=== PATIENT | male | born 1960 | race Caucasian/White ===

== ENCOUNTER 2022-05-23 11:53 | Outpatient (CLI) | payer OTHER, SELFPAY ==
[2022-05-23 12:08] VITALS: BP 158/68; PULSE 75; RESP 75; O2SAT 100
[2022-05-23] MEDS: TETRACAINE 0.5% OPHTH 1 DROP EYE-RIGHT ×3 (12:09→12:34)
[2022-05-23] MEDS: BRIMONIDINE TARTRATE 0.2% OPHTH 1 DROP EYE-RIGHT ×2 (12:10→12:45)
--- NOTE | 2022-05-23 13:40 | W.PM.OPTPROC ---
Procedure Note Date of procedure: 05/23/22 Will [facility] bill your pro fee for this procedure?: Yes Procedure Description: SURGEON: Marlee Pederson MD PREOPERATIVE DIAGNOSIS: Posterior capsular opacity, right eye POSTOPERATIVE DIAGNOSIS: Posterior capsular opacity, right eye PROCEDURE: YAG laser capsulotomy, right eye ANESTHESIA: Topical. ESTIMATED BLOOD LOSS: None PATHOLOGY SPECIMEN: None COMPLICATIONS: None INDICATIONS: See consult note for details. The risks, benefits and alternatives of the procedure were explained to the patient, who elected to proceed and signed informed consent to do so. PROCEDURE: The patient was brought to the pre-holding area where the right eye was identified as the operative eye. I placed my initials above this eye. The patient received 2 sets of 1 drop of 0.5% tetracaine and 1 drop of 1% tropicamide. They also received 1 drop of 0.2% brimonidine. They received 1 drop of 0.5% tetracaine immediately prior to bringing them back for the procedure. The patient was then brought to the procedure room where the right eye was again identified as the operative eye. A YAG Christiano capsulotomy lens was placed on the eye. The laser was administered using a total number of 15 shots with an energy of 2.4 mJ per shot for a total energy of 36 mJ. The patient tolerated the procedure well. DISPOSITION: The patient was taken back to the pre-holding area and given 1 drop of 0.2% brimonidine in the right eye. They were discharged to home in stable condition. The patient was instructed to call me or go to the emergency department with any sudden change, including dramatic loss of vision, severe pain in the eye or eyebrow region, nausea, or vomiting. The patient was instructed to use the 0.2% brimonidine 1 drop 2 times a day in the right eye for 1 week. The patient will follow up in the clinic in 1-2 weeks. Surgeon: Marlee Pederson MD
== END 2022-05-23 12:46 | disposition home or self-care (01) ==
LOC: EYE PRC 11:55
PROVIDERS: PCP Surgery; Visit Provider Ophthalmology
DX: H26.9 Unspecified cataract (principal)
CPT/HCPCS: 66821; A9270

== ENCOUNTER 2022-06-06 08:43 | Day surgery (SDC) | payer OTHER, SELFPAY ==
--- NOTE | 2022-06-06 09:13 | SUR.PREOP ---
Home COVID test negative, confirmed by contract writer.
--- NOTE | 2022-06-06 09:13 | SUR.PREOP ---
The eye drops brought by the patient (Ketorolac and Prednisolone) are examined and I have determined they are labeled by the patient's pharmacy for this patient as prescribed by the surgeon. The bottles are intact, recently obtained and appear to be correct.
[2022-06-06] MEDS: TETRACAINE 0.5% OPHTH 1 DROP EYE-LEFT ×2 (09:15→09:23)
[2022-06-06 09:16] VITALS: BMI 27.5
[2022-06-06] MEDS: KETOROLAC OPHTH 0.5% 1 DROP EYE-LEFT ×2 (09:21→09:31)
[2022-06-06 09:25] VITALS: BP 137/72; PULSE 75; RESP 16; TEMP 36.4; O2SAT 99
[2022-06-06] MEDS: SODIUM CHLORIDE 0.9 % (FLUSH) 10 ML SYRINGE IVF (09:35)
[2022-06-06] MEDS: TETRACAINE 0.5% OPHTH 2 DROP EYE-LEFT (10:27)
[2022-06-06] MEDS: BALANCED SALT IRRIG SOLN 15 ML EYE-LEFT (10:31)
--- NOTE | 2022-06-06 10:31 | W.ANESCHARGE ---
Anesthesia Charges Start Date/Time Anesthesia Start Date: 06/06/22 Anesthesia Start Time: 10:25 Stop Date/Time Anesthesia Stop Date: 06/06/22 Anesthesia Stop Time: 10:56 Summary Emergency: No
--- NOTE | 2022-06-06 10:59 | P.OPTPRC_ITS ---
Procedure Note Date of procedure: 06/06/22 Will [facility] bill your pro fee for this procedure?: Yes Procedure Description: SURGEON: Marlee Pederson MD PREOPERATIVE DIAGNOSIS: Nuclear sclerotic cataract, left eye. POSTOPERATIVE DIAGNOSIS: Nuclear sclerotic cataract, left eye. NAME OF OPERATION: Phacoemulsification of cataract with posterior chamber intraocular lens implantation in the left eye. ANESTHESIA: Topical. ESTIMATED BLOOD LOSS: Less than 2 cc. COMPLICATIONS: None. PATHOLOGY SPECIMEN: None. INDICATIONS: See consult note for details. The risks, benefits and alternatives of the procedure were explained to the patient, who elected to proceed and sign ed informed consent to do so. PROCEDURE: The patient was brought to the pre-holding area where the left eye was identified as the operative eye. I placed my initials above this eye. The patient received eye drops consisting of 0.5% tetracaine, 1% tropicamide, 10% phenylephrine, and 0.5% ketorolac. The patient was then brought to the operating room where the left eye was again identified as the operative eye. The eye was prepped with Betadine and draped in the usual sterile ophthalmic fashion. A #15 super-sharp blade was used to create a paracentesis site. 1% non-preserved intracameral lidocaine was injected into the anterior chamber. Endocoat was injected into the anterior chamber. A 2.4 mm keratome was used to create a three-plane self-sealing incision 1 mm anterior to the temporal limbus. A cystotome was used to create an anterior capsular leaflet. The Utrata forceps were used to extend this to form a continuous curvilinear capsulorrhexis. Hydrodissection was performed. The cataract was removed with phacoemulsification using the ereolm-dbf-[id number] technique. The irrigation and aspiration tip was used to remove the remaining cortex. Healon was injected into the capsular bag. An MIGNON [id number] intraocular lens of 21.5 diopters was injected into the capsular bag. The irrigation and aspiration tip was used to remove the remaining viscoelastic. Balanced salt solution on a cannula was used to hydrate the wound, and the wound was found to be watertight. The pupil was noted to be round. DISPOSITION: The patient was taken to the recovery room and discharged to home in stable condition. The patient was instructed to call me or go to the emergency department with any sudden change, including dramatic loss of vision, severe pain in the eye or eyebrow region, nausea, or vomiting. The patient will follow up in the clinic tomorrow morning. Surgeon: Marlee Pederson MD
[2022-06-06 11:11] VITALS: BP 131/82; PULSE 70; RESP 16; TEMP 36.6; O2SAT 97
--- NOTE | 2022-06-06 11:29 | W.ANESCHARGE ---
Anesthesia Charges Start Date/Time Anesthesia Start Date: 06/06/22 Anesthesia Start Time: 10:25 Stop Date/Time Anesthesia Stop Date: 06/06/22 Anesthesia Stop Time: 10:56 Summary Emergency: No
== END 2022-06-06 11:29 | disposition home or self-care (01) ==
PROVIDERS: PCP Surgery; Visit Provider Ophthalmology
PROC: (CPT 66984; principal; 2022-06-06 09:00)
DX: H25.12 Age-related nuclear cataract, left eye (principal)
CPT/HCPCS: 66984; 00142; A9270; J2250; J3010; V2632

== ENCOUNTER 2023-11-07 13:11 | Outpatient (CLI) | payer BC, SELFPAY | END 2023-11-07 13:12 | disposition home or self-care (01) | LOC: WOUND 13:20 | PROVIDERS: PCP Surgery; Visit Provider Nurse Practitioner Family | DX: E11.621 Type 2 diabetes mellitus with foot ulcer (principal); L97.412 Non-pressure chronic ulcer of right heel and midfoot with fat layer exposed; Z79.4 Long term (current) use of insulin; Z79.84 Long term (current) use of oral hypoglycemic drugs; Z92.25 Personal history of immunosuppression therapy | CPT/HCPCS: 11042; G0463 ==

== ENCOUNTER 2023-11-14 13:22 | Outpatient (CLI) | payer BC, SELFPAY | END 2023-11-14 13:23 | disposition home or self-care (01) | LOC: WOUND 13:22 | PROVIDERS: PCP Surgery; Visit Provider Nurse Practitioner Family | DX: E11.621 Type 2 diabetes mellitus with foot ulcer (principal); L97.412 Non-pressure chronic ulcer of right heel and midfoot with fat layer exposed; Z79.4 Long term (current) use of insulin; Z79.84 Long term (current) use of oral hypoglycemic drugs; Z92.25 Personal history of immunosuppression therapy | CPT/HCPCS: 11042 ==

== ENCOUNTER 2023-11-21 13:04 | Outpatient (CLI) | payer BC, SELFPAY | END 2023-11-21 13:05 | disposition home or self-care (01) | LOC: WOUND 13:05 | PROVIDERS: PCP Surgery; Visit Provider Nurse Practitioner Family | DX: E11.621 Type 2 diabetes mellitus with foot ulcer (principal); L97.412 Non-pressure chronic ulcer of right heel and midfoot with fat layer exposed; Z92.25 Personal history of immunosuppression therapy | CPT/HCPCS: 11042 ==

== ENCOUNTER 2023-11-28 12:59 | Outpatient (CLI) | payer BC, SELFPAY | END 2023-11-28 13:00 | disposition home or self-care (01) | LOC: WOUND 12:59 | PROVIDERS: PCP Surgery; Visit Provider Nurse Practitioner Family | DX: E11.621 Type 2 diabetes mellitus with foot ulcer (principal); L97.412 Non-pressure chronic ulcer of right heel and midfoot with fat layer exposed; Z79.4 Long term (current) use of insulin; Z79.84 Long term (current) use of oral hypoglycemic drugs; Z92.25 Personal history of immunosuppression therapy | CPT/HCPCS: 11042 ==

== ENCOUNTER 2023-12-05 12:44 | Outpatient (CLI) | payer BC, SELFPAY | END 2023-12-05 12:45 | disposition home or self-care (01) | LOC: WOUND 12:44 | PROVIDERS: PCP Surgery; Visit Provider Nurse Practitioner Family | DX: E11.621 Type 2 diabetes mellitus with foot ulcer (principal); L97.412 Non-pressure chronic ulcer of right heel and midfoot with fat layer exposed; Z79.4 Long term (current) use of insulin; Z79.84 Long term (current) use of oral hypoglycemic drugs; Z92.25 Personal history of immunosuppression therapy | CPT/HCPCS: 11042 ==

== ENCOUNTER 2023-12-06 14:32 | Outpatient (CLI) | payer BC, SELFPAY ==
--- NOTE | 2023-12-06 15:00 | CRLHL7_ITS ---
For Patients: As a result of the Century Cures Act, medical imaging exams and procedure reports are released immediately into your electronic medical record. You may view this report before your referring provider. If you have questions, please contact your health care provider. Indication: Vasculitis Technique: High-resolution CT chest performed in the supine position with inspiration and expiration. Please note that all CT scans at this facility use dose modulation, iterative reconstruction, and/or weight-based dosing when appropriate to reduce radiation dose to as low as reasonably achievable. Comparison: No comparisons available. Findings: Left adrenal nodule is present measuring 2.0 cm with a mean Hounsfield units of 32 making this indeterminate. Right adrenal gland is normal. Gallbladder is contracted. Calcifications of the coronary arteries. Several calcified lymph nodes are present representing sequela of granulomatous disease. A few subcentimeter noncalcified lymph nodes are present throughout the mediastinum. No enlarged lymph nodes. No fracture is present. Mild multilevel degenerative changes noted. Ground-glass densities are present in both upper lobes, right greater than left. Subpleural nodular densities within the posterior left lower lobe noted. Noncalcified nodule in the right middle lobe measures 4.5 millimeters. Additional noncalcified nodule right middle lobe measures 5.2 millimeters. Tiny nodular density in the right lower lobe measures 3 millimeters. No pulmonary edema or pleural effusion. No pneumothorax. Mild air trapping is present within the dependent lower lobes. Impression: Mild dependent air trapping bilaterally. No thickening of the interlobular septa or honeycombing to suggest pulmonary fibrosis. A few scattered nodular densities bilaterally measuring up to 5.2 millimeters. Follow-up in noncontrast CT 1 year could be considered. Bilateral upper lobe ground-glass densities, right greater than left, suggesting infiltrates or bilateral upper lung zone disease, would consider sarcoidosis, hypersensitivity pneumonitis, or histiocytosis. Please note that all CT scans at this facility use dose modulation, iterative reconstruction, and/or weight-based dosing when appropriate to reduce radiation dose to as low as reasonably achievable. Dictated by Reed Ramos MD @ 12/10/2023 9:33:29 AM (Electronically Signed)
== END 2023-12-06 14:33 | disposition home or self-care (01) ==
LOC: CT 14:33
PROVIDERS: PCP Surgery; Visit Provider Internal Medicine Pulmonary Disease
DX: I77.6 Arteritis, unspecified (principal); R91.8 Other nonspecific abnormal finding of lung field
CPT/HCPCS: 71250

== ENCOUNTER 2023-12-13 14:27 | Outpatient (CLI) | payer BC, SELFPAY | END 2023-12-13 14:28 | disposition home or self-care (01) | LOC: WOUND 14:27 | PROVIDERS: PCP Surgery; Visit Provider Physician Assistant | DX: E11.621 Type 2 diabetes mellitus with foot ulcer (principal); L97.412 Non-pressure chronic ulcer of right heel and midfoot with fat layer exposed; Z92.25 Personal history of immunosuppression therapy; Z79.4 Long term (current) use of insulin; Z79.84 Long term (current) use of oral hypoglycemic drugs | CPT/HCPCS: 15275; Q4101 ==

== ENCOUNTER 2023-12-20 15:04 | Outpatient (CLI) | payer BC, SELFPAY | END 2023-12-20 15:05 | disposition home or self-care (01) | LOC: WOUND 15:04 | PROVIDERS: PCP Surgery; Visit Provider Nurse Practitioner Family | DX: E11.621 Type 2 diabetes mellitus with foot ulcer (principal); L97.412 Non-pressure chronic ulcer of right heel and midfoot with fat layer exposed; Z79.4 Long term (current) use of insulin; Z79.84 Long term (current) use of oral hypoglycemic drugs; Z92.25 Personal history of immunosuppression therapy | CPT/HCPCS: G0463 ==

== ENCOUNTER 2023-12-27 15:04 | Outpatient (CLI) | payer BC, SELFPAY | END 2023-12-27 15:05 | disposition home or self-care (01) | LOC: WOUND 15:04 | PROVIDERS: PCP Surgery; Visit Provider Nurse Practitioner Family | DX: E11.621 Type 2 diabetes mellitus with foot ulcer (principal); L97.412 Non-pressure chronic ulcer of right heel and midfoot with fat layer exposed; Z79.4 Long term (current) use of insulin; Z79.84 Long term (current) use of oral hypoglycemic drugs | CPT/HCPCS: 11042 ==

== ENCOUNTER 2024-01-13 07:59 | Outpatient (CLI) | payer BC, SELFPAY | END 2024-01-13 08:00 | disposition home or self-care (01) | LOC: AMB 01-14 22:03 | PROVIDERS: PCP Surgery; Visit Provider Family Medicine | DX: R07.89 Other chest pain (principal); R55 Syncope and collapse; R42 Dizziness and giddiness | CPT/HCPCS: A0425; A0427 ==

== ENCOUNTER 2024-01-13 08:28 | Inpatient (IN) | payer BC, SELFPAY ==
[2024-01-13] VITALS (29 sets, daily range): BP systolic 124–152; BP diastolic 69–91; PULSE 86–105; RESP 16–20; TEMP 35.5–36.3; O2SAT 94–100
--- NOTE | 2024-01-13 08:39 | ED_ITS ---
HPI - General Adult General Date Seen: 01/13/24 Chief complaint: Dizziness/Vertigo Stated complaint: Dizziness Time Seen by Provider: 01/13/24 08:39 History of Present Illness HPI narrative: 63-year-old gentleman with a history of type 2 diabetes (on insulin), rheumatoid arthritis (recent infusion of Rituxan a couple of months ago done in [place]), hypertension, sleep apnea, and medical record indicates he has a history of ANCA associated vasculitis. He is brought to the ER today by EMS from his job. He works at the [employer]. Patient is seen upon arrival by EMS. History from paramedics is that he was at the [employer] this morning. He was walking and he got very weak and dizzy and felt like he was going to faint so he sat down. He did not actually lose consciousness. No chest pain or shortness of breath. Oxygen a pulse rate normal. He is also complaining of left leg swelling and pain. EKG was normal. Blood sugar was 280. History from the patient is as follows. He notes that he forgot to tell paramedics that he tested positive for COVID 8 days ago. He has been having symptoms of if COVID including a mild cough but generally doing pretty well. He has not been particularly run down her fatigued. He has not really been needing to rest in bed. He was well enough today that he was able to go to work. He has been having swelling in his left leg with swelling and discomfort from the hip all the way down to the foot that is been like that since last Saturday, 3 days ago. No known injury. He did have a recent plane flight to [place] about 2 weeks ago. Probably contracted COVID while traveling. No fevers. No cough. No vomiting or diarrhea. He says been eating and drinking plenty of fluids. Because his left leg was swollen uncomfortable he almost decided to come to the ER instead of go to work this morning. Ultimately he decided just to go to work. Related Data Home Medications ?Medication ?Instructions ?Recorded ?Confirmed insulin glargine-yfgn 100 unit/mL 11 unit subcut BID 06/05/22 01/13/24 (3 mL) subcutaneous pen (Semglee (insulin glargine-yfgn) Pen) metformin 1,000 mg tablet 1,000 mg PO BIDWM 06/05/22 01/13/24 losartan 25 mg tablet 25 mg PO DAILY 05/30/23 01/13/24 acetaminophen 500 mg tablet 1,000 mg PO QID PRN 01/13/24 01/13/24 empagliflozin 25 mg tablet 25 mg PO DAILY 01/13/24 01/13/24 (Jardiance) ibuprofen 200 mg tablet (Advil) 200 mg PO Q6H PRN 01/13/24 01/13/24 Allergies Allergy/AdvReac Type Severity Reaction Status Date / Time No Known Drug Allergies Allergy Verified 01/13/24 10:32 [facility] Medical History (Updated 01/13/24 @ 13:19 by Jaky John MD) ANCA-associated vasculitis ?I77.82 - Antineutrophilic cytoplasmic antibody [ANCA] vasculitis (ICD-10) Hypertension ?I10 - Essential (primary) hypertension (ICD-10) Type 2 diabetes mellitus ?E11.9 - Type 2 diabetes mellitus without complications (ICD-10) TACOS (obstructive sleep apnea) ?G47.33 - Obstructive sleep apnea (adult) (pediatric) (ICD-10) Surgical History (Updated 01/13/24 @ 12:22 by Jaky John MD) History of colonoscopy ?Z98.890 - Other specified postprocedural states (ICD-10) History of tonsillectomy ?Z90.89 - Acquired absence of other organs (ICD-10) History of hernia repair ?Z98.890 - Other specified postprocedural states (ICD-10) ?Z87.19 - Personal history of other diseases of the digestive system (ICD-10) Social History Smoking Status: Never smoker Do you use any of these nicotine containing products: None Second hand tobacco smoke exposure: No How often do you have a drink containing alcohol: never AUDIT-C Alcohol total score: 0 Non-prescribed substance use: denies use Caffeine: Yes Exam Narrative: Exam Narrative: Constitutional: Appears well-developed and well-nourished. Alert. Conversant. Mildly anxious but polite. Non toxic. HENT: Head: Atraumatic. Nose: Nose normal. Mouth/Throat: Oral mucosa is clear and moist. no trismus. Pharynx normal. Eyes: Conjunctivae normal. EOM normal. Pupils equal, round, and reactive to light. No scleral icterus. Neck: Normal range of motion. Neck supple. No tracheal deviation present. No JVD Cardiovascular: Normal rate, regular rhythm. No gallop. No friction rub. No murmur heard. Symmetric radial artery pulses Pulmonary/Chest: Effort normal. No stridor. No respiratory distress. No wheezes. No rales. No rhonchi . No tenderness. Abdominal: Soft. Bowel sounds normal. No distension. No mass. No tenderness. No rebound. No guarding. Musculoskeletal: No L-spine tenderness. Pelvis stable. RUE: Normal range of motion. No tenderness. No deformity LUE: Normal range of motion. No tenderness. No deformity RLE: Normal range of motion. No edema. No tenderness. No deformity LLE: Normal range of motion in his hip, knee, ankle. No bony deformity. He has fairly diffuse erythema and swelling of the entire left leg from the hip all way down to the foot. Normal cap refill. Strong DP and PT pulses. No signs of ischemia. Concerning for possible DVT Lymph: No ascending lymphangitis Neurological: Alert and oriented to person, place, and time. Normal strength. CN II-VII intact. No sensory deficit. GCS eye subscore is 4. GCS verbal subscore is 5. GCS motor subscore is 6. Normal coordination Skin: Skin is warm and dry. No rash noted. No pallor. Normal capillary refill. Psychiatric: Normal mood. Polite but mildly anxious Const: Vital Signs, click to edit/add: Vital Signs - 24 hr 01/13/24 08:30 01/13/24 09:02 01/13/24 09:03 Temperature 96 F L Pulse Rate 100 Pulse Rate [Right Pulse Oximeter] 105 H Respiratory Rate 20 Blood Pressure 136/71 Blood Pressure [Le ft Upper Arm] 145/77 H Pulse Oximetry 96 95 97 Oxygen Delivery Me thod Room Air 01/13/24 09:04 01/13/24 09:15 01/13/24 09:30 Temperature Pulse Rate 98 99 94 Pulse Rate [Right Pulse Oximeter] Respiratory Rate Blood Pressure Blood Pressure [Le ft Upper Arm] Pulse Oximetry 95 94 95 Oxygen Delivery Me thod 01/13/24 09:32 01/13/24 09:45 01/13/24 10:00 Temperature Pulse Rate 94 93 95 Pulse Rate [Right Pulse Oximeter] Respiratory Rate Blood Pressure 131/69 Blood Pressure [Le ft Upper Arm] Pulse Oximetry 95 97 97 Oxygen Delivery Me thod 01/13/24 10:01 01/13/24 10:58 01/13/24 11:00 Temperature Pulse Rate 93 94 100 Pulse Rate [Right Pulse Oximeter] Respiratory Rate Blood Pressure 143/78 H Blood Pressure [Le ft Upper Arm] Pulse Oximetry 96 98 98 Oxygen Delivery Me thod 01/13/24 11:01 01/13/24 11:15 01/13/24 11:30 Temperature Pulse Rate 96 98 97 Pulse Rate [Right Pulse Oximeter] Respiratory Rate Blood Pressure 149/85 H Blood Pressure [Le ft Upper Arm] Pulse Oximetry 100 100 97 Oxygen Delivery Me thod 01/13/24 11:32 01/13/24 11:33 01/13/24 11:45 Temperature Pulse Rate 98 96 94 Pulse Rate [Right Pulse Oximeter] Respiratory Rate Blood Pressure 133/91 H Blood Pressure [Le ft Upper Arm] Pulse Oximetry 99 97 99 Oxygen Delivery Me thod 01/13/24 12:00 01/13/24 12:01 01/13/24 12:15 Temperature Pulse Rate 94 94 94 Pulse Rate [Right Pulse Oximeter] Respiratory Rate Blood Pressure 141/81 H Blood Pressure [Le ft Upper Arm] Pulse Oximetry 96 97 98 Oxygen Delivery Me thod Course Course ED Course: We reviewed ultrasound with r&d lab technician. It is positive for DVT extending all the way from the common femoral distal. Proximally appears to be open. No evidence for pelvic clot Reevaluation(s) Reevaluation #1: Reviewed chest CT. There is evidence for a nonocclusive saddle embolus as well as other bilateral pulmonary embolisms. By my read. Heparin ordered. Reevaluation #2: Consult made to [facility]. At about 05 23 discussed with interventional radiology from at [facility], Dr. Navarro. We viewed the patient is present today presentation, imaging findings, hemodynamics findings, lab findings. At this point IR does not feel the patient needs transfer for thrombectomy or catheter directed thrombolysis of his leg or his PEs. He would agree the plan to admit the patient for heparinization given his clot burden but that he can stay here in [place]. Reevaluation #3: Discussed with Dr. Redd, hospitalist, who agrees to admit the patient. Vital Signs Vital signs: Initial Vital Signs Temperature 96 F L 01/13/24 08:30 Temperature Source Temporal Artery Scan 01/13/24 08:30 Pulse Rate 105 H 01/13/24 08:30 Pulse Rhythm Regular 01/13/24 08:30 Pulse Strength 3+ Normal 01/13/24 08:30 Respiratory Rate 20 01/13/24 08:30 Blood Pressure 145/77 H 01/13/24 08:30 Blood Pressure Mean 99 01/13/24 08:30 Blood Pressure Position Semi-Fowlers 01/13/24 08:30 Pulse Oximetry 96 01/13/24 08:30 Oxygen Delivery Method Room Air 01/13/24 08:30 Vital Signs Temperature 96 F L 01/13/24 08:30 Pulse Rate 105 H 01/13/24 08:30 Respiratory Rate 20 01/13/24 08:30 Blood Pressure 145/77 H 01/13/24 08:30 Pulse Oximetry 96 01/13/24 08:30 Oxygen Delivery Method Room Air 01/13/24 08:30 Temperature 96 F L 01/13/24 08:30 Pulse Rate 94 01/13/24 12:15 Respiratory Rate 20 01/13/24 08:30 Blood Pressure 141/81 H 01/13/24 12:01 Pulse Oximetry 98 01/13/24 12:15 Oxygen Delivery Method Room Air 01/13/24 08:30 Medications Administered Medications: Generic Name Dose Route Start Last Admin Trade Name Freq PRN Reason Stop Dose Admin Heparin Sodium/Dextrose 25,000 unit in 500 mls @ 0 mls/hr 01/13/24 10:30 01/13/24 11:09 Heparin IV 1,500 unit/hr .Q0M SHERIF 30 mls/hr Administration Protocol Per Protocol Discontinued Medications Generic Name Dose Route Start Last Admin Trade Name Freq PRN Reason Stop Dose Admin Aspirin 162 mg 01/13/24 08:43 01/13/24 08:58 Aspirin 81 Mg Tab.Chew PO 01/13/24 08:44 162 mg ONCE ONE Administration Heparin Sodium (Porcine) 7,300 unit 01/13/24 10:28 01/13/24 11:07 Heparin 5,000 Unit/0.5 Ml Inj 80 unit/kg (7300 unit) 01/13/24 10:29 7,300 unit IVP Administration ONCE ONE Sodium Chloride 1,000 mls @ 1,000 mls/hr 01/13/24 08:45 01/13/24 10:07 0.9 % Sodium Chloride 1000 Ml IV 01/13/24 09:44 Infused .Q1H SHERIF Infusion Medical Decision Making MDM Narrative Medical decision making narrative: This patient presents for evaluation of a near syncopal event. He is actually positive for COVID 8 days ago. He has also had left lower extremity swelling nausea for 3 days. Left lower extremity swelling for a couple of days is concerning for DVT. Suspect he probably embolized clot from his left leg into his lungs today while he was walking. Likely had a PE leading to his symptoms. Left lower extremity ultrasound and chest CT do confirm a left lower extremity DVT and bilateral pulmonary emboli. Although he has a fairly large clot burden he is actually fairly stable. He presented with tachycardia and shortness of breath but was not hypoxic. While in the ER stack a cardia improved. He remains with normal oxygen saturations on room air. He has not had any hypotension. EKG shows nonspecific changes but no clear signs of ischemia or right heart strain. Troponin normal. N terminal proBNP also reassuring. CT scan shows possible findings of mild right heart strain With bilateral pulmonary emboli in the fairly large clot in his left leg, consider possible IR intervention. Discussed with interventional radiology and they recommend conservative management for now with heparinization and anticoagulation. As above, will be admitted to the hospitalist service here in [place]. Knows what we presume that his clot is probably triggered by recent COVID illness the issues A broad differential for near-syncope was considered. No murmurs . Initial ECG shows normal sinus rhythm and no dysrhythmogenic abnormality such as WPW, prolonged QT, Brugada syndrome, and no ischemia. No headache or other neurologic symptoms to suggest subarachnoid , stroke . No reported seizure-like activity or postictal phase. devulcanizer charger while the patient here in the ER showed no dysrhythmia or ectopy. Lab Data Labs: Lab Results 01/13/24 01/13/24 Range/Units 08:56 09:45 WBC 7.09 (4.50-11.00) K/uL RBC 3.42 L (4.30-5.90) m/uL Hgb 11.1 L (13.5-17.5) gm/dL Hct 33.8 L (37.0-53.0) % MCV 99 (80-100) fL MCH 33 (26-34) pg MCHC 33 (32-36) gm/dL RDW Coeff of Delvin 15.9 H (11.5-15.5) % Plt Count 84 L (140-440) K/uL Neut % (Auto) 78.2 H (42.0-72.0) % Lymph % (Auto) 7.5 L (20-44) % [place] % (Auto) 8.9 (0.0-11.0) % Eos % (Auto) 0.6 (0.0-7.0) % Baso % (Auto) 0.3 (0.0-3.0) % Neut # (Auto) 5.50 (1.7-7.0) K/uL Lymph # (Auto) 0.50 L (0.90-2.90) K/uL [place] # (Auto) 0.60 (0.00-0.90) K/UL Eos # (Auto) 0.04 (0.00-0.50) K/uL Baso # (Auto) 0.02 (0.00-0.30) K/uL Abs Immat Gran (auto) 0.32 H (0.00-0.30) K/uL Imm/Tot Granulo (auto) 4.5 % INR 1.04 (0.91-1.10) APTT 34 H (23-33) Seconds D-Dimer Quant (PE/DVT) 5.32 H (0.00-0.50) ug/ml Sodium 136 (135-149) mmol/L Potassium 3.8 (3.6-5.1) mmol/L Chloride 101 (96-114) mmol/L Carbon Dioxide 22 (20-32) mmol/L Anion Gap 13 (7-15) mEq/L BUN 19 (7-30) mg/dL Creatinine 0.8 (0.5-1.5) mg/dL Estimated GFR 101 ml/min Glucose 301 H (60-115) mg/dL Lactate 2.7 H (0.5-1.9) mmol/L Calcium 8.9 (8.4-10.6) mg/dL Troponin I < 0.01 L (0.01-0.04) ng/mL C-Reactive Protein 2.8 H (0.5-1.0) mg/dL NT-Pro-B Natriuret Pep 248 pg/mL POC Creatinine 0.8 (0.6-1.3) mg/dl Imaging Data US LLE: Attestation: I have reviewed the pertinent imaging results. My impression: Verbal report from r&d lab technician is that he has clot extending from his common femoral vein and extensively distally. No proximal clot in the iliac. Radiologist's impression: IMPRESSION: Extensive left lower extremity DVT. Ordering provider aware of the findings. CT scan - chest: Attestation: I have reviewed the pertinent imaging results. My impression: Small PE near the junction of the right and left pulmonary arteries. Nonocclusive. Also other bilateral PE- Dr. Lovett Radiologist's impression: IMPRESSION: 1. Bilateral pulmonary emboli including a nonobstructing saddle embolus and other emboli from the lobar to subsegmental level. This critical finding was discussed with Dr. Lovett at 11:07 a.m. on 01/13/2024. 2. Mildly dilated pulmonary artery and right heart chambers may indicate right heart strain. 3. Appearance of the pulmonary parenchyma similar to the recent high-resolution chest CT. Pattern is not typical of pulmonary infarcts but is dependent with a history of vasculitis, possible pulmonary hemorrhage. 4. The left adrenal nodule is indeterminate on this exam but has previously been documented as stable and benign. ECG Data Attestation: I personally reviewed and interpreted this ECG as follows: Interpretation: Normal sinus rhythm Rate: 97 MS: 150 QRS axis: normal ST segment/T wave: nonspecific T wave flattening. No ST elevation or depression QTc: 449 No [id number] Discharge Plan Discharge Patient Disposition: Admitted As Inpatient
--- NOTE | 2024-01-13 08:44 | CRLHL7_ITS ---
For Patients: As a result of the Century Cures Act, medical imaging exams and procedure reports are released immediately into your electronic medical record. You may view this report before your referring provider. If you have questions, please contact your health care provider. INDICATION: Near syncope, tachycardia, lower extremity deep vein thrombosis. COMPARISON: CT chest 12/06/2023, DVT ultrasound 01/13/2024 TECHNIQUE: CT angiogram chest with contrast, pulmonary embolism protocol. Multiplanar axial, coronal, and sagittal reformats are included. MIP images to improve detection of pulmonary emboli are included. Intravenous contrast: 95 mL Isovue 370. FINDINGS: PE: Well-timed contrast bolus. There are multiple bilateral pulmonary emboli. This includes a small nonobstructing saddle embolus. The most proximal obstructing emboli are at the lobar level to the right upper lobe. There are other scattered segmental and subsegmental emboli. Dilated main pulmonary artery, 3.3 centimeters. Borderline dilated right heart chambers. Minimal reflux of contrast below the diaphragm. Airway: Normal tracheobronchial tree. Lungs: Good lung volumes. Scattered areas of irregularly marginated ground-glass opacification and pulmonary nodules are similar to the recent comparison examination. Distribution is not typical of pulmonary infarcts. No consolidations. No pulmonary edema. Pleura: No pleural effusion. No pneumothorax. Lymph nodes: There are some coarse calcifications in a right paratracheal lymph node in a pattern suggestive of old healed granulomatous disease.. Mediastinum: No pneumomediastinum. No mass. Heart and great vessels: No pericardial effusion. Normal cardiac chamber size. Heavy coronary atherosclerotic plaques. No aortic aneurysm. Chest wall: Normal. No masses. Upper abdomen: 1.9 centimeter indeterminate attenuation left adrenal nodule. Bones: No fractures. No focal bone lesions. IMPRESSION: 1. Bilateral pulmonary emboli including a nonobstructing saddle embolus and other emboli from the lobar to subsegmental level. This critical finding was discussed with Dr. Lovett at 11:07 a.m. on 01/13/2024. 2. Mildly dilated pulmonary artery and right heart chambers may indicate right heart strain. 3. Appearance of the pulmonary parenchyma similar to the recent high-resolution chest CT. Pattern is not typical of pulmonary infarcts but is dependent with a history of vasculitis, possible pulmonary hemorrhage. 4. The left adrenal nodule is indeterminate on this exam but has previously been documented as stable and benign. Please note that all CT scans at this facility use dose modulation, iterative reconstruction, and/or weight-based dosing when appropriate to reduce radiation dose to as low as reasonably achievable. Dictated by Sadia Olea MD @ 01/13/2024 11:09:07 AM (Electronically Signed)
[2024-01-13] MEDS: ASPIRIN 81 MG TAB.CHEW 162 MG PO (08:58)
[2024-01-13] MEDS: 0.9 % SODIUM CHLORIDE 1000 ml 1,000 ML IV (08:59)
[2024-01-13 09:05] LABS: Lactate* 2.7 mmol/L (0.5-1.9)
[2024-01-13 09:09] LABS: Basophils Absolute Auto 0.02 K/uL (0.00-0.30); Basophils Percent Auto 0.3 % (0.0-3.0); Eosinophils Absolute Auto 0.04 K/uL (0.00-0.50); Eosinophils Percent Auto 0.6 % (0.0-7.0); Hematocrit 33.8 % (37.0-53.0); Hemoglobin* 11.1 gm/dL (13.5-17.5); Immature Granulocytes Abs Auto 0.32 K/uL (0.00-0.30); Immature Granulocytes Pct Auto 4.5 %; Lymphocytes Percent Auto 7.5 % (20-44); Mean Corpuscular HGB Conc 33 gm/dL (32-36); Mean Corpuscular Hemoglobin 33 pg (26-34); Mean Corpuscular Volume 99 fL (80-100); Monocytes Percent Auto 8.9 % (0.0-11.0); Neutrophils Percent Auto 78.2 % (42.0-72.0); Platelet Count* 84 K/uL (140-440); RDW Coefficient of Variation % 15.9 % (11.5-15.5); Red Blood Count 3.42 m/uL (4.30-5.90); White Blood Count* 7.09 K/uL (4.50-11.00)
[2024-01-13 09:10] LABS: Slide Review Reflex No
[2024-01-13 09:27] LABS: C Reactive Protein* 2.8 mg/dL (0.5-1.0)
[2024-01-13 09:34] LABS: D Dimer Quantitative* 5.32 ug/ml (0.00-0.50)
[2024-01-13 09:37] LABS: NT Pro B Type NatriureticPept* 248 pg/mL; Troponin I* < 0.01 ng/mL (0.01-0.04)
--- NOTE | 2024-01-13 09:44 | CRLHL7_ITS ---
For Patients: As a result of the Century Cures Act, medical imaging exams and procedure reports are released immediately into your electronic medical record. You may view this report before your referring provider. If you have questions, please contact your health care provider. INDICATION: Left leg swelling and pain COMPARISON: None. TECHNIQUE: A compression venous ultrasound exam was performed of the left lower extremity using patel-scale imaging, color Doppler and spectral Doppler analysis. FINDINGS: Extensive occlusive noncompressible clot present throughout the left lower extremity involving all the venous structures. Lack of Doppler flow noted. Limited imaging of the contralateral groin demonstrates a normal spectral waveform and color Doppler venous blood flow within the right common femoral vein. IMPRESSION: Extensive left lower extremity DVT. Ordering provider aware of the findings. Dictated by Reed Ramos MD @ 01/13/2024 10:47:06 AM (Electronically Signed)
[2024-01-13 09:51] LABS: Creatinine, Point-of-Care* 0.8 mg/dl (0.6-1.3)
[2024-01-13 10:04] LABS: Chloride* 101 mmol/L (96-114)
[2024-01-13 10:05] LABS: Potassium* 3.8 mmol/L (3.6-5.1); Sodium* 136 mmol/L (135-149)
[2024-01-13 10:07] LABS: Anion Gap 13 mEq/L (7-15); Carbon Dioxide* 22 mmol/L (20-32); Creatinine* 0.8 mg/dL (0.5-1.5); Estimated Glomerular Filt Rate 101 ml/min
[2024-01-13 10:08] LABS: Blood Urea Nitrogen* 19 mg/dL (7-30); Calcium* 8.9 mg/dL (8.4-10.6); Glucose* 301 mg/dL (60-115)
[2024-01-13 11:03] LABS: INR 1.04 (0.91-1.10); Prothrombin Time 14.3 Seconds
[2024-01-13 11:04] LABS: Partial Thromboplastin Time* 34 Seconds (23-33)
[2024-01-13] MEDS: HEPARIN 5,000 UNIT/0.5 ML INJ 7300 UNIT IVP (11:07)
[2024-01-13] MEDS: HEPARIN 25,000 UNIT/500 ML BAG 30 UNIT IV (11:09)
--- NOTE | 2024-01-13 12:14 | PM.IMHP1 ---
Hospitalist- H&P: HPI History of Present Illness Date Seen: 01/13/24 Chief complaint: Dizziness Narrative: Wagner Shah is a 63 year old male who presented to the ER by ambulance for dizziness/pre-syncope. He was walking into work this morning ([employer]) and had fairly acute onset of dizziness and weakness. He did not faint, but felt like he could, so sat down and called 911. BG at that time was 280. Recently + for COVID (01/04), no significant symptoms. Travelled to [place] by plane a few days prior to symptoms. Has noted 3 days of LLE pain and edema. No GI symptoms, no GI symptoms. No dyspnea or chest pain. ER Course and Findings: - extensive LLE DVT - bilateral PE + nonobstructing saddle embolus + emboli from lobar to subsegmental level - heparin gtt initiated - negative troponin, no hypoxia, BP 140/80 and Pulse in the 90s - ER physician reviewed with ANW, felt that patient could be managed here on heparin gtt given clinical stability Upon arrival to the floor, patient is feeling better. No further dizziness. Histories updated below. Dr. Fajardo at the [facility] is PCP. 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 - Antineutrophilic cytoplasmic antibody [ANCA] vasculitis (ICD-10) Hypertension ?I10 - Essential (primary) hypertension (ICD-10) Type 2 diabetes mellitus ?E11.9 - Type 2 diabetes mellitus without complications (ICD-10) TACOS (obstructive sleep apnea) ?G47.33 - Obstructive sleep apnea (adult) (pediatric) (ICD-10) Surgical History (Updated 01/13/24 @ 12:22 by Jaky John MD) History of colonoscopy ?Z98.890 - Other specified postprocedural states (ICD-10) History of tonsillectomy ?Z90.89 - Acquired absence of other organs (ICD-10) History of hernia repair ?Z98.890 - Other specified postprocedural states (ICD-10) ?Z87.19 - Personal history of other diseases of the digestive system (ICD-10) Social History (Updated 01/13/24 @ 13:24 by Jaky John MD) Narrative: Nonsmoker, no ETOH. Works at the [employer] 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 Requests Full Code status. Smoking Status: Never smoker Do you use any of these nicotine containing products: None Second hand tobacco smoke exposure: No How often do you have a drink containing alcohol: never AUDIT-C Alcohol total score: 0 Non-prescribed substance use: denies use Caffeine: Yes Meds Home Medications and Allergies Home Medications ?Medication ?Instructions ?Recorded ?Confirmed ?Type insulin glargine-yfgn 100 unit/mL 11 unit subcut BID 06/05/22 01/13/24 History (3 mL) subcutaneous pen (Semglee (insulin glargine-yfgn) Pen) metformin 1,000 mg tablet 1,000 mg PO BIDWM 06/05/22 01/13/24 History losartan 25 mg tablet 25 mg PO DAILY 05/30/23 01/13/24 History acetaminophen 500 mg tablet 1,000 mg PO QID PRN 01/13/24 01/13/24 History empagliflozin 25 mg tablet 25 mg PO DAILY 01/13/24 01/13/24 History (Jardiance) ibuprofen 200 mg tablet (Advil) 200 mg PO Q6H PRN 01/13/24 01/13/24 History Allergies Allergy/AdvReac Type Severity Reaction Status Date / Time No Known Drug Allergies Allergy Verified 01/13/24 10:32 Exam Narrative: Exam Narrative: GEN: Alert and oriented, nontoxic HEENT: EOMIs bilaterally, no scleral icterus CV: RRR, No concerning murmurs R: LCTA bilaterally without concerning wheezing, air movement adequate Ext: + edema LLE Neuro: Nonfocal Psych: Appropriate Const: Vital Signs, click to edit/add: Vital Signs - 24 hr 01/13/24 08:30 01/13/24 09:02 01/13/24 09:03 Temperature 96 F L Pulse Rate 100 Pulse Rate [Right Pulse Oximeter] 105 H Respiratory Rate 20 Blood Pressure 136/71 Blood Pressure [Le ft Upper Arm] 145/77 H Pulse Oximetry 96 95 97 Oxygen Delivery Me thod Room Air 01/13/24 09:04 01/13/24 09:15 01/13/24 09:30 Temperature Pulse Rate 98 99 94 Pulse Rate [Right Pulse Oximeter] Respiratory Rate Blood Pressure Blood Pressure [Le ft Upper Arm] Pulse Oximetry 95 94 95 Oxygen Delivery [facility] 01/13/24 09:32 01/13/24 09:45 01/13/24 10:00 Temperature Pulse Rate 94 93 95 Pulse Rate [Right Pulse Oximeter] Respiratory Rate Blood Pressure 131/69 Blood Pressure [Le ft Upper Arm] Pulse Oximetry 95 97 97 Oxygen Delivery [facility] 01/13/24 10:01 01/13/24 10:58 01/13/24 11:00 Temperature Pulse Rate 93 94 100 Pulse Rate [Right Pulse Oximeter] Respiratory Rate Blood Pressure 143/78 H Blood Pressure [Le ft Upper Arm] Pulse Oximetry 96 98 98 Oxygen Delivery [facility] 01/13/24 11:01 01/13/24 11:15 01/13/24 11:30 Temperature Pulse Rate 96 98 97 Pulse Rate [Right Pulse Oximeter] Respiratory Rate Blood Pressure 149/85 H Blood Pressure [Le ft Upper Arm] Pulse Oximetry 100 100 97 Oxygen Delivery [facility] 01/13/24 11:32 Temperature Pulse Rate 98 Pulse Rate [Right Pulse Oximeter] Respiratory Rate Blood Pressure 133/91 H Blood Pressure [Le ft Upper Arm] Pulse Oximetry 99 Oxygen Delivery [facility] Hospitalist - H&P: Result Labs Labs: Short CBC 01/13/24 Range/Units 08:56 WBC 7.09 (4.50-11.00) K/uL Hgb 11.1 L (13.5-17.5) gm/dL Hct 33.8 L (37.0-53.0) % Plt Count 84 L (140-440) K/uL BMP 01/13/24 08:56 Sodium 136 Potassium 3.8 Chloride 101 Carbon Dioxide 22 BUN 19 Creatinine 0.8 Glucose 301 H Calcium 8.9 Cardiac Enzymes 01/13/24 Range/Units 08:56 Troponin I < 0.01 L (0.01-0.04) ng/mL Assessment and Plan Assessment and plan (1) Saddle pulmonary embolus: Problem comment: - heparin gtt (initiated 01/12), TTE - close monitoring on telemetry and continuous pulse oximetry - may need transfer if any worsening of status Status: Acute (2) Left leg DVT: Problem comment: - per above Status: Acute (3) TACOS (obstructive sleep apnea): Status: Acute (4) Type 2 diabetes mellitus: Problem comment: - insulin dependent, last A1C 7.7 on 10/2023 - hold Empagliflozin and Metformin, continue home dose of insulin and add in SS Status: Acute (5) ANCA-associated vasculitis: Problem comment: - sees Dr. Kaufman of Rheumatology, previously steroid dependent, received a dose of Rituximab October 2023 - monitor closely for s/sx of pulmonary hemorrhage given history Status: Acute (6) Hypertension: Problem comment: - holding home Losartan to follow BPs Status: Acute Plan - per above - Full Code - updated at bedside, questions answered
--- NOTE | 2024-01-13 12:16 | ED.NURSE ---
Report to NAYELY Hernandes.
[2024-01-13 18:09] LABS: Partial Thromboplastin Time* 96 Seconds (23-33)
[2024-01-13] MEDS: INSULIN GLARGINE,HUM.REC.ANLOG 100 UNIT/ML INSULN.PEN 11 UNIT SUBCUT (21:24)
[2024-01-13] MEDS: ACETAMINOPHEN 500 MG TABLET 1000 MG PO (21:30)
[2024-01-14] VITALS (7 sets, daily range): BP systolic 122–148; BP diastolic 65–76; PULSE 75–124; RESP 16–24; TEMP 36.4–37.1; O2SAT 94–97
--- NOTE | 2024-01-14 00:27 | PC.NURSE ---
End of Shift: Patient pleasant and cooperative. Afebrile. Rating pain in left leg 3/10 and PRN Tylenol given x1. Up to bathroom with SBA. Tolerating regular diet with no nausea. Heparin drip titrated per protocol. Right heel wound dressing changed per MD.
[2024-01-14 01:09] LABS: Partial Thromboplastin Time* 61 Seconds (23-33)
[2024-01-14] MEDS: HEPARIN 25,000 UNIT/500 ML BAG 26 UNIT IV (05:15)
[2024-01-14] MEDS: ACETAMINOPHEN 500 MG TABLET 1000 MG PO ×2 (06:32→22:58)
--- NOTE | 2024-01-14 06:41 | PC.NURSE ---
End of shift note [id number]: Pt alert & oriented x 4 and able to make needs known. 2+ edema noted to LLE with elevation encouraged and ice pack provided after pt was given PRN Tylenol by evening nurse. Pt was also given PRN Tylenol this morning for c/o 3/10 L leg pain. He transfers/ambulates with SBA using IV pole. Pt wears CPAP overnight. He is continent of bladder using urinal or toilet. IV to R AC patent with Heparin drip running. PTT of 61 when drawn at 0030.?PTT drawn at 0630 with result pending. VSS and pt has been afebrile. Pt on telemetry with NSR noted.
[2024-01-14 06:54] LABS: Hematocrit 30.4 % (37.0-53.0); Mean Corpuscular HGB Conc 33 gm/dL (32-36); Mean Corpuscular Hemoglobin 32 pg (26-34); Mean Corpuscular Volume 98 fL (80-100); Platelet Count* 72 K/uL (140-440); Red Blood Count 3.09 m/uL (4.30-5.90); White Blood Count* 6.86 K/uL (4.50-11.00)
[2024-01-14 07:01] LABS: Slide Review Reflex No
[2024-01-14 07:15] LABS: Albumin* 4.3 g/dL (3.3-5.0); Chloride* 103 mmol/L (96-114); Sodium* 137 mmol/L (135-149)
[2024-01-14 07:16] LABS: Potassium* 3.7 mmol/L (3.6-5.1)
[2024-01-14 07:18] LABS: Alanine Aminotransferase* 11 U/L (4-50); Alkaline Phosphatase* 75 U/L (40-150); Anion Gap 9 mEq/L (7-15); Aspartate Amino Transferase* 17 U/L (12-35); Bilirubin Total* 0.7 mg/dL (0.1-1.5); Blood Urea Nitrogen* 13 mg/dL (7-30); Calcium* 8.9 mg/dL (8.4-10.6); Carbon Dioxide* 25 mmol/L (20-32); Creatinine* 0.7 mg/dL (0.5-1.5); Estimated Glomerular Filt Rate 105 ml/min; Glucose* 102 mg/dL (60-115); Total Protein* 7.1 g/dL (6.0-8.3)
[2024-01-14 07:32] LABS: INR 1.07 (0.91-1.10); Prothrombin Time 14.6 Seconds
[2024-01-14 07:33] LABS: Partial Thromboplastin Time* 72 Seconds (23-33)
[2024-01-14] MEDS: INSULIN GLARGINE,HUM.REC.ANLOG 100 UNIT/ML INSULN.PEN 11 UNIT SUBCUT ×2 (09:07→22:50)
[2024-01-14] MEDS: APIXABAN 5 MG TABLET 10 MG PO ×2 (09:09→22:50)
[2024-01-14] MEDS: EMPAGLIFLOZIN 10 MG TABLET 25 MG PO (09:09)
[2024-01-14] MEDS: SODIUM CHLORIDE 0.9 % (FLUSH) 10 ML SYRINGE 5 ML IVF ×2 (09:16→22:51)
--- NOTE | 2024-01-14 09:31 | PM.IMPN1 ---
Progress Note: A&P Assessment and plan (1) Saddle pulmonary embolus: Problem details: - heparin gtt (initiated 01/12, transitioning to oral Eliquis on 01/13) - stable on RA, normotensive, no tachycardia at rest - TTE 01/12 and reassuring: Final Impressions: 1. Normal left ventricular size, mildly increased wall thickness, normal global systolic function, calculated EF of 60 %. 2. The mitral valve is normal, mild to moderate mitral regurgitation. 3. Moderately increased estimated pulmonary pressures by tricuspid regurgitation velocity and right atrial pressure (42 mmHg plus RAP). 4. Right ventricular cavity size is normal, global systolic RV function is mildly reduced. 5. The inferior vena cava is normal sized, respiratory size variation greater than 50%. Status: Acute (2) Left leg DVT: Problem details: - per above Status: Acute (3) TACOS (obstructive sleep apnea): Problem details: - home CPAP Status: Acute (4) Type 2 diabetes mellitus: Problem details: - insulin dependent, last A1C 7.7 on 10/2023 - home meds: Metformin (restarted 01/13), Empagliflozin, home insulin dose, SSI Status: Acute (5) ANCA-associated vasculitis: Problem details: - sees Dr. Kaufman of Rheumatology, previously steroid dependent, received a dose of Rituximab October 2023 - monitor closely for s/sx of pulmonary hemorrhage given history Status: Acute (6) Hypertension: Problem details: - holding home Losartan to follow BPs Status: Acute Plan - per above - ambulate/pain management today - monitor erythema of LLE - likely home with tomorrow if remains hemodynamically stabe Subjective Date Seen: 01/14/24 Interval history: Alireza was admitted to the hospital yesterday for LLE DVT and saddle PE. He has remained hemodynamically stable without chest pain. TTE obtained 01/12 and reassuring. Notes pain in LLE with ambulation, working on pain management and movement today. Alireza also has some anxiety about discharging home given symptoms that prompted admission (presyncope). Transitioning from heparin gtt to oral Eliquis today. Exam Narrative: Exam Narrative: GEN: Alert and oriented, sitting comfortably in bed HEENT: Normal external ears, EOMIs bilaterally, no scleral icterus CV: RRR, No concerning murmurs R: LCTA bilaterally, no wheezing or rales, air movement is adequate Ext: + edema of LLE, area of erythema over medial malleolus (nursing staff will outline and monitor) Skin: Besides LLE erythema, no other concerning skin lesions on extremities or back Neuro: No focal deficits Psych: Appropriate Const: Vital Signs, click to edit/add: Vital Signs - 24 hr 01/13/24 09:32 01/13/24 09:45 01/13/24 10:00 Temperature Pulse Rate 94 93 95 Pulse Rate [Pulse Oximeter] Respiratory Rate Blood Pressure 131/69 Blood Pressure [Le ft Arm] Pulse Oximetry 95 97 97 Oxygen Delivery Me thod 01/13/24 10:01 01/13/24 10:58 01/13/24 11:00 Temperature Pulse Rate 93 94 100 Pulse Rate [Pulse Oximeter] Respiratory Rate Blood Pressure 143/78 H Blood Pressure [Le ft Arm] Pulse Oximetry 96 98 98 Oxygen Delivery Me thod 01/13/24 11:01 01/13/24 11:15 01/13/24 11:30 Temperature Pulse Rate 96 98 97 Pulse Rate [Pulse Oximeter] Respiratory Rate Blood Pressure 149/85 H Blood Pressure [Le ft Arm] Pulse Oximetry 100 100 97 Oxygen Delivery Me thod 01/13/24 11:32 01/13/24 11:33 01/13/24 11:45 Temperature Pulse Rate 98 96 94 Pulse Rate [Pulse Oximeter] Respiratory Rate Blood Pressure 133/91 H Blood Pressure [Le ft Arm] Pulse Oximetry 99 97 99 Oxygen Delivery Mn thod 01/13/24 12:00 01/13/24 12:01 01/13/24 12:15 Temperature Pulse Rate 94 94 94 Pulse Rate [Pulse Oximeter] Respiratory Rate Blood Pressure 141/81 H Blood Pressure [Le ft Arm] Pulse Oximetry 96 97 98 Oxygen Delivery Me thod 01/13/24 13:36 01/13/24 13:36 01/13/24 15:00 Temperature 97 F L Pulse Rate Pulse Rate [Pulse Oximeter] 100 Respiratory Rate 18 20 Blood Pressure Blood Pressure [Le ft Arm] 152/87 H Pulse Oximetry 98 98 96 Oxygen Delivery Me od Room Air Room Air 01/13/24 15:00 01/13/24 15:00 01/13/24 15:00 Temperature 97.2 F L Pulse Rate Pulse Rate [Pulse Oximeter] 95 95 Respiratory Rate 18 18 Blood Pressure Blood Pressure [Le ft Arm] 140/78 H Pulse Oximetry 96 96 Oxygen Delivery Me thod Room Air Room Air 01/13/24 15:00 01/13/24 19:00 01/13/24 21:45 Temperature 97.4 F L Pulse Rate 100 Pulse Rate [Pulse Oximeter] 99 95 Respiratory Rate 18 Blood Pressure Blood Pressure [Le ft Arm] 146/83 H 132/72 Pulse Oximetry 97 Oxygen Delivery Me thod Room Air 01/13/24 23:00 01/13/24 23:13 01/13/24 23:40 Temperature Pulse Rate 95 Pulse Rate [Pulse Oximeter] 86 Respiratory Rate 16 16 Blood Pressure Blood Pressure [Le ft Arm] Pulse Oximetry 96 Oxygen Delivery Me thod CPAP 01/13/24 23:40 01/13/24 23:46 01/14/24 03:00 Temperature 97.1 F L 97.5 F L Pulse Rate Pulse Rate [Pulse Oximeter] 86 80 Respiratory Rate 16 16 Blood Pressure Blood Pressure [Le ft Arm] 124/69 122/74 Pulse Oximetry 96 96 97 Oxygen Delivery Me thod CPAP CPAP 01/14/24 07:00 01/14/24 07:00 01/14/24 07:00 Temperature Pulse Rate 75 Pulse Rate [Pulse Oximeter] 81 Respiratory Rate 18 Blood Pressure Blood Pressure [Le ft Arm] Pulse Oximetry 97 Oxygen Delivery Me thod 01/14/24 07:00 01/14/24 07:00 Temperature 97.9 F Pulse Rate Pulse Rate [Pulse Oximeter] 81 Respiratory Rate 18 18 Blood Pressure Blood Pressure [Le ft Arm] 131/65 Pulse Oximetry 97 97 Oxygen Delivery Me thod Room Air Room Air CPAP Labs Labs: Laboratory Results - last 24 hr 01/13/24 01/13/24 01/13/24 08:56 09:45 17:33 WBC RBC Hgb Hct MCV MCH MCHC Plt Count INR 1.04 APTT 34 H 96 H D-Dimer Quant (PE/DVT) 5.32 H Sodium 136 Potassium 3.8 Chloride 101 Carbon Dioxide 22 Anion Gap 13 BUN 19 Creatinine 0.8 Estimated GFR 101 Glucose 301 H Calcium 8.9 Total Bilirubin AST ALT Alkaline Phosphatase Troponin I < 0.01 L C-Reactive Protein 2.8 H NT-Pro-B Natriuret Pep 248 Total Protein Albumin Lab Acknowledgement POC Creatinine 0.8 01/14/24 01/14/24 01/14/24 00:40 06:27 08:23 WBC 6.86 RBC 3.09 L Hgb 10.0 L Hct 30.4 L MCV 98 MCH 32 MCHC 33 Plt Count 72 L INR 1.07 APTT 61 H 72 H D-Dimer Quant (PE/DVT) Sodium 137 Potassium 3.7 Chloride 103 Carbon Dioxide 25 Anion Gap 9 BUN 13 Creatinine 0.7 Estimated GFR 105 Glucose 102 Calcium 8.9 Total Bilirubin 0.7 AST 17 ALT 11 Alkaline Phosphatase 75 Troponin I C-Reactive Protein NT-Pro-B Natriuret Pep Total Protein 7.1 Albumin 4.3 Lab Acknowledgement Test Added POC Creatinine
--- NOTE | 2024-01-14 13:18 | REH.PT ---
Pt seen by process description writer this pm. Pt assessed with SEC and 4ww with gait. Baldemaro's ind gait with 4ww throughout the nursing unit. Educated on safe stair ambulation with step to technique. No further PT warranted.
--- NOTE | 2024-01-14 13:35 | NUTR.NU ---
Patient and were educated on carbohydrate counting, portion sizes, balancing meals/snacks and label reading.? Heart Healthy Consistent Carbohydrate counting from AND provided along with folder including other Heart Healthy [facility] guidelines.? Recommended for patient to have 3 carbohydrate choices at meals with 1-2 choices for snacks as needed based on hunger.? Patient was also encouraged to keep timing of meals consistent and avoid skipping meals. Encouraged patient to have mixed snacks if snacking (pro + CHO) and to exercise following meals when possible. 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 Patient verbalized understanding.? RDNs contact information was provided and patient was encouraged to contact RDN with questions and to schedule an outpatient visit in 6 mo-1 year for review and updates.
[2024-01-14] MEDS: OXYCODONE 5 MG TABLET 2.5 MG PO (13:42)
--- NOTE | 2024-01-14 14:30 | PC.NURSE ---
End of shift [id number]: Pt has been A&O, afebrile and VSS. He is up independently in his room with a steady gait and no dizziness. Heparin gtt was discontinued @ 0905 and pt was transitioned to PO Eliquis BID. PIV in right AC is SL and C/D/I. Reports LL soreness rating it at 5/10; started on PRN oxycodone & given last @ 1340. Noted a small area of erythema on medial left ankle which was outlined. LL wrapped in EVI wrap to assist in swelling- noted 2+ edema this morning. Pt walked in the hallway with nursing staff while monitoring SpO2 and HR & pt tolerated well. Lowest SpO2 was 94% and highest HR was [address] & reading NSR range from 70s-90s bpm at rest. Pt reported having a medium, hard BM this morning. ?
[2024-01-14] MEDS: METFORMIN 1,000 MG TABLET 1000 MG PO (18:01)
[2024-01-14] MEDS: OXYCODONE 5 MG TABLET PO ×2 (18:01→22:58)
--- NOTE | 2024-01-14 23:31 | PC.NURSE ---
Shift Note: Pt friendly and cooperative. VS WNL and LS COA. Rates pain in left leg/ankle 4/10, PRN Tylenol and Oxycodone given to manage pain. Pt elevating LE's above his heart and intermittently using ice packs for comfort.
[2024-01-15 03:00] VITALS: BP 117/64; PULSE 74; RESP 16; TEMP 36.5; O2SAT 98
[2024-01-15] MEDS: OXYCODONE 5 MG TABLET PO ×2 (05:14→08:47)
[2024-01-15 06:16] LABS: Basophils Absolute Auto 0.04 K/uL (0.00-0.30); Basophils Percent Auto 0.6 % (0.0-3.0); Eosinophils Absolute Auto 0.05 K/uL (0.00-0.50); Eosinophils Percent Auto 0.8 % (0.0-7.0); Hematocrit 30.1 % (37.0-53.0); Immature Granulocytes Abs Auto 0.35 K/uL (0.00-0.30); Immature Granulocytes Pct Auto 5.4 %; Lymphocytes Percent Auto 13.7 % (20-44); Mean Corpuscular HGB Conc 33 gm/dL (32-36); Mean Corpuscular Hemoglobin 33 pg (26-34); Mean Corpuscular Volume 99 fL (80-100); Monocytes Percent Auto 12.6 % (0.0-11.0); Neutrophils Percent Auto 66.9 % (42.0-72.0); Platelet Count* 63 K/uL (140-440); RDW Coefficient of Variation % 16.5 % (11.5-15.5); Red Blood Count 3.03 m/uL (4.30-5.90); White Blood Count* 6.43 K/uL (4.50-11.00)
[2024-01-15 06:18] LABS: Slide Review Reflex No
--- NOTE | 2024-01-15 06:31 | PC.NURSE ---
End of shift [id number]: Pt has been A&O, afebrile and VSS. He slept well in between cares overnight. Home CPAP was on until 0500 then he switched to RA since SBP > 120. Pt is independent in his room. LLL elevated above his heart level with pillows and wrapped with an EVI wrap. Right heel dressing is C/D/I. Pt reports left leg pain at 2/10 and left ankle pain at 4/10. PRN oxycodone given once @ 0515. TELE read NSR all night. PIV in right AC is SL and C/D/I. Denies dizziness or nausea. ?
[2024-01-15 06:34] LABS: Chloride* 103 mmol/L (96-114)
[2024-01-15 06:35] LABS: Potassium* 3.7 mmol/L (3.6-5.1); Sodium* 137 mmol/L (135-149)
[2024-01-15 06:37] LABS: Alkaline Phosphatase* 68 U/L (40-150); Anion Gap 9 mEq/L (7-15); Aspartate Amino Transferase* 18 U/L (12-35); Bilirubin Total* 0.7 mg/dL (0.1-1.5); Blood Urea Nitrogen* 13 mg/dL (7-30); Carbon Dioxide* 25 mmol/L (20-32); Creatinine* 0.7 mg/dL (0.5-1.5); Estimated Glomerular Filt Rate 105 ml/min; Total Protein* 6.7 g/dL (6.0-8.3)
[2024-01-15 06:38] LABS: Alanine Aminotransferase* 10 U/L (4-50); Calcium* 8.9 mg/dL (8.4-10.6); Glucose* 104 mg/dL (60-115)
--- NOTE | 2024-01-15 06:42 | PC.NURSE ---
End of shift [id number]: Pt has been A&O, afebrile and VSS. He slept well in between cares overnight. Home CPAP was on until 0500 then he switched to RA since SBP < 120. Pt is independent in his room. LLL elevated above his heart level with pillows and wrapped with an EVI wrap. Right heel dressing is C/D/I. Pt reports left leg pain at 2/10 and left ankle pain at 4/10. PRN oxycodone given once @ 0515. TELE read NSR all night. PIV in right AC is SL and C/D/I. Denies dizziness or nausea.??
[2024-01-15] MEDS: METFORMIN 1,000 MG TABLET 1000 MG PO (08:48)
[2024-01-15] MEDS: ACETAMINOPHEN 500 MG TABLET 1000 MG PO (08:48)
[2024-01-15] MEDS: APIXABAN 5 MG TABLET 10 MG PO (08:49)
[2024-01-15] MEDS: EMPAGLIFLOZIN 10 MG TABLET 25 MG PO (08:49)
[2024-01-15 09:03] VITALS: O2SAT 98
[2024-01-15 09:06] VITALS: RESP 24; O2SAT 98
[2024-01-15 09:09] VITALS: BP 136/78; PULSE 95; RESP 24; TEMP 36.7; O2SAT 98
[2024-01-15 09:14] VITALS: PULSE 96
--- NOTE | 2024-01-15 09:34 | PM.DS1 ---
DS: Providers Provider Date Seen: 01/15/24 Date of admission: 01/13/24 12:37 Primary care physician: Chin Fajardo MD Admitting Clinician: Mick Redd MD Consults: 01/14/24 12:45 Consult to Physical Therapy [CONS] Routine Comment: Reason(s) for PT Consult:: Evaluate Ambulation Any Restrictions?:: No Restrictions Attending Physician on discharge: Jaky John MD Date of Discharge: 01/15/24 DS: Diagnosis Discharge Diagnosis (1) Saddle pulmonary embolus: Status: Acute Problem details: - heparin gtt (initiated 01/12, transitioning to oral Eliquis on 01/13) - stable on RA, normotensive, no tachycardia at rest - TTE obtained 01/12 and reassuring: Final Impressions: 1. Normal left ventricular size, mildly increased wall thickness, normal global systolic function, calculated EF of 60 %. 2. The mitral valve is normal, mild to moderate mitral regurgitation. 3. Moderately increased estimated pulmonary pressures by tricuspid regurgitation velocity and right atrial pressure (42 mmHg plus RAP). 4. Right ventricular cavity size is normal, global systolic RV function is mildly reduced. 5. The inferior vena cava is normal sized, respiratory size variation greater than 50%. (2) Left leg DVT: Status: Acute Problem details: - per above (3) TACOS (obstructive sleep apnea): Status: Acute Problem details: - home CPAP (4) Type 2 diabetes mellitus: Status: Acute Problem details: - insulin dependent, last A1C 7.7 on 10/2023 - home meds: Metformin (restarted 01/13), Empagliflozin, home insulin dose, did not require any sliding scale insulin during stay (5) ANCA-associated vasculitis: Status: Acute Problem details: - sees Dr. Kaufman of Rheumatology, previously steroid dependent, received a dose of Rituximab October 2023 (6) Hypertension: Status: Acute Problem details: - holding home Losartan to follow BPs DS: Summary Hospital Course Hospital Course: Alireza presented to the hospital on 01/12 for a weakness, dizziness, and a pre-syncopal episode. In the ER, diagnosed with a saddle PE and LLE DVT. Heparin gtt initiated, TTE obtained and reassuring (results above). On hospital day 1, transitioned to oral Apixaban and worked on ambulation/pain control. Comorbidities noted above: stable throughout stay. Patient remained hemodynamically stable with reassuring labs, appropriate for d/c home with close PCP f/u on 01/15/24. Status at Discharge Functional status at discharge: uses cane/walker Overall status at discharge: patient is progressing back to baseline Time Spent with Patient Time attestation: Total time spent providing and/or coordinating discharge services: Time spent: Greater than 30 minutes Specific discharge activities: Patient education, medication reconciliation Exam Narrative: Exam Narrative: GEN: Alert and oriented, sitting comfortably in bed HEENT: Normal external ears, EOMIs bilaterally, no scleral icterus CV: RRR, No concerning murmurs, rubs, or gallops R: LCTA bilaterally without concerning wheezing, rales, or rhonchi Ext: Edema of LLE, wrapped with Dot bandages Skin: Known R heel wound is wrapped and normally examined Neuro: No focal deficits, no resting tremor Psych: Appropriate Const: Vital Signs, click to edit/add: Vital Signs - 24 hr 01/14/24 09:39 01/14/24 11:00 01/14/24 15:00 Temperature 97.6 F Pulse Rate Pulse Rate [Pulse Oximeter] 124 H 96 Respiratory Rate 24 16 Blood Pressure [Le ft Arm] 141/74 H Pulse Oximetry 94 96 96 Oxygen Delivery Me thod Room Air Room Air 01/14/24 15:00 01/14/24 15:00 01/14/24 15:00 Temperature 98.8 F Pulse Rate Pulse Rate [Pulse Oximeter] 96 96 Respiratory Rate 16 16 16 Blood Pressure [Le ft Arm] 148/73 H Pulse Oximetry 96 96 Oxygen Delivery Me thod Room Air Room Air 01/14/24 15:00 01/14/24 19:00 01/14/24 23:00 Temperature 98.6 F Pulse Rate 124 H 79 Pulse Rate [Pulse Oximeter] 97 Respiratory Rate 16 Blood Pressure [Le ft Arm] 137/76 Pulse Oximetry 96 Oxygen Delivery Me thod Room Air 01/14/24 23:00 01/14/24 23:00 01/14/24 23:00 Temperature Pulse Rate Pulse Rate [Pulse Oximeter] 83 Respiratory Rate 16 16 Blood Pressure [Le ft Arm] Pulse Oximetry 96 96 Oxygen Delivery Me thod CPAP 01/14/24 23:00 01/15/24 03:00 01/15/24 09:03 Temperature 97.9 F 97.7 F Pulse Rate Pulse Rate [Pulse Oximeter] 83 74 Respiratory Rate 16 16 Blood Pressure [Le ft Arm] 123/71 117/64 Pulse Oximetry 96 98 98 Oxygen Delivery Me thod CPAP Room Air 01/15/24 09:06 01/15/24 09:09 01/15/24 09:14 Temperature 98.1 F Pulse Rate 96 Pulse Rate [Pulse Oximeter] 95 Respiratory Rate 24 24 Blood Pressure [Le ft Arm] 136/78 Pulse Oximetry 98 98 Oxygen Delivery Me thod Room Air Room Air DS: Data Data Completed and Pending Completed studies during hospitalization: INDICATION: Near syncope, tachycardia, lower extremity deep vein thrombosis. COMPARISON: CT chest 12/06/2023, DVT ultrasound 01/13/2024 TECHNIQUE: CT angiogram chest with contrast, pulmonary embolism protocol. Multiplanar axial, coronal, and sagittal reformats are included. MIP images to improve detection of pulmonary emboli are included. Intravenous contrast: 95 mL Isovue 370. FINDINGS: PE: Well-timed contrast bolus. There are multiple bilateral pulmonary emboli. This includes a small nonobstructing saddle embolus. The most proximal obstructing emboli are at the lobar level to the right upper lobe. There are other scattered segmental and subsegmental emboli. Dilated main pulmonary artery, 3.3 centimeters. Borderline dilated right heart chambers. Minimal reflux of contrast below the diaphragm. Airway: Normal tracheobronchial tree. Lungs: Good lung volumes. Scattered areas of irregularly marginated ground-glass opacification and pulmonary nodules are similar to the recent comparison examination. Distribution is not typical of pulmonary infarcts. No consolidations. No pulmonary edema. Pleura: No pleural effusion. No pneumothorax. Lymph nodes: There are some coarse calcifications in a right paratracheal lymph node in a pattern suggestive of old healed granulomatous disease.. Mediastinum: No pneumomediastinum. No mass. Heart and great vessels: No pericardial effusion. Normal cardiac chamber size. Heavy coronary atherosclerotic plaques. No aortic aneurysm. Chest wall: Normal. No masses. Upper abdomen: 1.9 centimeter indeterminate attenuation left adrenal nodule. Bones: No fractures. No focal bone lesions. IMPRESSION: 1. Bilateral pulmonary emboli including a nonobstructing saddle embolus and other emboli from the lobar to subsegmental level. This critical finding was discussed with Dr. Lovett at 11:07 a.m. on 01/13/2024. 2. Mildly dilated pulmonary artery and right heart chambers may indicate right heart strain. 3. Appearance of the pulmonary parenchyma similar to the recent high-resolution chest CT. Pattern is not typical of pulmonary infarcts but is dependent with a history of vasculitis, possible pulmonary hemorrhage. 4. The left adrenal nodule is indeterminate on this exam but has previously been documented as stable and benign. Please note that all CT scans at this facility use dose modulation, iterative reconstruction, and/or weight-based dosing when appropriate to reduce radiation dose to as low as reasonably achievable. Dictated by Sadia Olea MD @ 01/13/2024 11:09:07 AM Labs on day of discharge: Labs from last 24 hours 01/15/24 01/14/24 05:55 06:27 WBC 6.43 RBC 3.03 L Hgb 10.0 L Hct 30.1 L MCV 99 MCH 33 MCHC 33 RDW Coeff of Delvin 16.5 H Plt Count 63 L Neut % (Auto) 66.9 Lymph % (Auto) 13.7 L [place] % (Auto) 12.6 H Eos % (Auto) 0.8 Baso % (Auto) 0.6 Neut # (Auto) 4.30 Lymph # (Auto) 0.90 [place] # (Auto) 0.80 Eos # (Auto) 0.05 Baso # (Auto) 0.04 Abs Immat Gran (auto) 0.35 H Imm/Tot Granulo (auto) 5.4 Sodium 137 Potassium 3.7 Chloride 103 Carbon Dioxide 25 Anion Gap 9 BUN 13 Creatinine 0.7 Estimated GFR 105 Glucose 104 Calcium 8.9 Total Bilirubin 0.7 AST 18 ALT 10 Alkaline Phosphatase 68 Total Protein 6.7 Albumin 4.0 TSH 2.010 Discharge Plan Discharge Disposition: Home, Self-Care Date of Admission: 01/13/24 12:37 Attending Provider on Discharge: Jaky John Primary Care Provider: Chin Fajardo Condition: Improved Anticipated Discharge Date/Time: 01/15/24 09:15 Discharge Medications: New oxycodone 5 mg Tablet 5 mg PO Q4H PRNQty: 20 0RF apixaban 5 mg tablet See Rx Instructions .ROUTE .COMPLEX Qty: 71 0RF Rx Instructions: 10mg po BID until 01/19 on SATURDAY, 01/20, start 1 tablet (5mg) twice/day Continued insulin glargine-yfgn [Semglee(insulin glarg-yfgn)Pen] 100 unit/mL (3 mL) insulin pen 11 unit SUBCUT BID metformin 1,000 mg tablet 1,000 mg PO BIDWM Jardiance 25 mg tablet 25 mg PO DAILY acetaminophen 500 mg tablet 1,000 mg PO QID PRN Held losartan 25 mg tablet 25 mg PO DAILY Hold Instructions: Hold this until f/u with Dr. Fajardo - he will let you know when to restart Discontinued ibuprofen [Advil] 200 mg tablet 200 mg PO Q6H PRN Discharge Orders: Discharge Order (Routine); Ordered 01/15/24 Ordered By: Jaky John Patient Education: Oxycodone, Rapid Release (By mouth), Apixaban (By mouth), Pulmonary Embolism (DC), Deep Vein Thrombosis (DC) Additional Instructions: No work until you see Dr. Fajardo in followup. Good idea to walk throughout the day, and elevate your leg when you're not walking. Consider buying a Pulse Oximeter at [facility] (this checks your oxygen level and pulse: oxygen should be >90%) Medication changes: - HOLD your Losartan (your blood pressure was on the lower side in the hospital), Dr. Fajardo will let you know when to restart this - NEW medications: 1.Oxycodone (as needed for pain), take 1000mg 2. APIXABAN (also called Eliquis): you take 2 tabs (10mg) twice/day with food for one week, then 1 tab (5mg) twice/day with food. You will be on this for at least three months (I only sent a one month supply to [facility], Dr. Fajardo will refill at your appointment). Activity Level: No strenuous activity Discharge Diet: Diabetic Follow Up Appointments: Chin Fajardo MD [Primary Care Provider] - 01/21/24 11:45 am (Please make a hospital f/u with Dr. Fajardo in 7-10 days) Forms: [employer] Info Instructions
--- NOTE | 2024-01-15 14:29 | PC.NURSE ---
Discharge - Pt alert, oriented, cooperative and pleasant. Up independently with walker and observed to ambulate in the halls. Pt reports pain in L ankle as 6/10 when ambulating. Medication given per MAR with pt indicating improved comfort. Pt tolerating RA, EVI wrap on LLE, and elevation of extremity. IV removed with catheter intact. Discharge education given to pt with verbalizing understanding. D/c to home with spouse via wheelchair at approximately 1400.
== END 2024-01-15 14:00 | disposition home or self-care (01) | DRG 134 ==
LOC: ED 09:04 → MEDSURG 12:20
PROVIDERS: Family Medicine; Admitting Provider Family Medicine; Emergency Provider Emergency Medicine; PCP Surgery; Visit Provider Family Medicine
DX: I26.92 Saddle embolus of pulmonary artery without acute cor pulmonale (principal); I82.492 Acute embolism and thrombosis of other specified deep vein of left lower extremity; I26.94 Multiple subsegmental thrombotic pulmonary emboli without acute cor pulmonale; I77.82 Antineutrophilic cytoplasmic antibody [ANCA] vasculitis; I10 Essential (primary) hypertension; E11.9 Type 2 diabetes mellitus without complications; Z79.4 Long term (current) use of insulin; Z79.84 Long term (current) use of oral hypoglycemic drugs; G47.33 Obstructive sleep apnea (adult) (pediatric)
CPT/HCPCS: 36415; 71275; 80048; 80053; 82565; 82962; 83605; 83880; 84443; 84484; 85025; 85027; 85379; 85610; 85730; 86140; 93005; 93306; 93971; 94761; 99284; 99285; A9270; J1644; J1815; J7030; Q9967

== ENCOUNTER 2024-01-17 15:07 | Outpatient (CLI) | payer BC, SELFPAY | END 2024-01-17 15:08 | disposition home or self-care (01) | LOC: WOUND 15:07 | PROVIDERS: PCP Surgery; Visit Provider Nurse Practitioner Family | DX: E11.621 Type 2 diabetes mellitus with foot ulcer (principal); L97.412 Non-pressure chronic ulcer of right heel and midfoot with fat layer exposed; Z79.4 Long term (current) use of insulin; Z79.84 Long term (current) use of oral hypoglycemic drugs; Z92.25 Personal history of immunosuppression therapy; Z86.16 Personal history of COVID-19 | CPT/HCPCS: 97597 ==

== ENCOUNTER 2024-01-24 15:15 | Outpatient (CLI) | payer BC, SELFPAY | END 2024-01-24 15:16 | disposition home or self-care (01) | LOC: WOUND 01-28 12:18 | PROVIDERS: PCP Surgery; Visit Provider Nurse Practitioner Family | DX: E11.621 Type 2 diabetes mellitus with foot ulcer (principal); L97.412 Non-pressure chronic ulcer of right heel and midfoot with fat layer exposed; Z92.25 Personal history of immunosuppression therapy; Z79.4 Long term (current) use of insulin; Z79.84 Long term (current) use of oral hypoglycemic drugs | CPT/HCPCS: 15271; 15275; Q4101 ==

== ENCOUNTER 2024-01-31 15:12 | Outpatient (CLI) | payer BC, SELFPAY | END 2024-01-31 15:13 | disposition home or self-care (01) | LOC: WOUND 15:12 | PROVIDERS: PCP Surgery; Visit Provider Nurse Practitioner Family | DX: E11.621 Type 2 diabetes mellitus with foot ulcer (principal); L97.418 Non-pressure chronic ulcer of right heel and midfoot with other specified severity; Z92.25 Personal history of immunosuppression therapy; Z86.16 Personal history of COVID-19; Z79.4 Long term (current) use of insulin; Z79.84 Long term (current) use of oral hypoglycemic drugs | CPT/HCPCS: G0463 ==

== ENCOUNTER 2024-02-06 14:45 | Outpatient (CLI) | payer BC, SELFPAY | END 2024-02-06 14:46 | disposition home or self-care (01) | LOC: WOUND 14:45 | PROVIDERS: PCP Surgery; Visit Provider Nurse Practitioner Family | DX: E11.621 Type 2 diabetes mellitus with foot ulcer (principal); L97.418 Non-pressure chronic ulcer of right heel and midfoot with other specified severity; Z79.4 Long term (current) use of insulin; Z79.84 Long term (current) use of oral hypoglycemic drugs | CPT/HCPCS: G0463 ==

== ENCOUNTER 2025-06-16 10:33 | Outpatient (CLI) | payer BC, SELFPAY ==
[2025-06-16 11:39] LABS: Hematocrit* 26.3 % (37.0-53.0); Hemoglobin* 9.4 gm/dL (13.5-17.5); Immature Granulocytes Abs Auto 0.05 K/uL (0.00-0.30); Immature Granulocytes Pct Auto 0.9 %; Mean Corpuscular HGB Conc 36 gm/dL (32-36); Mean Corpuscular Hemoglobin 36 pg (26-34); Mean Corpuscular Volume 100 fL (80-100); RDW Coefficient of Variation % 14.8 % (11.5-15.5); Red Blood Count* 2.63 m/uL (4.30-5.90); White Blood Count* 5.58 K/uL (4.50-11.00)
[2025-06-16 11:40] LABS: Lymphocytes Absolute Auto 0.70 K/uL (0.90-2.90); Slide Review Reflex No
[2025-06-16 11:47] LABS: Chloride* 106 mmol/L (96-114)
[2025-06-16 11:48] LABS: Albumin* 4.1 g/dL (3.3-5.0); Potassium* 3.3 mmol/L (3.6-5.1); Sodium* 138 mmol/L (135-149)
[2025-06-16 11:50] LABS: Blood Urea Nitrogen* 12 mg/dL (7-30); Creatinine* 1.2 mg/dL (0.5-1.5); Estimated Glomerular Filt Rate 68 ml/min
[2025-06-16 11:51] LABS: Alanine Aminotransferase* 22 U/L (4-50); Alkaline Phosphatase* 115 U/L (40-150); Anion Gap 9 mEq/L (7-15); Aspartate Amino Transferase* 32 U/L (12-35); Bilirubin Total* 0.9 mg/dL (0.1-1.5); Calcium* 9.7 mg/dL (8.4-10.6); Carbon Dioxide* 23 mmol/L (20-32); Glucose* 95 mg/dL (60-115); Total Protein* 6.6 g/dL (6.0-8.3)
[2025-06-19 18:06] LABS: CMV Qnt Plasma IU/mL Not Detected; CMV Qnt Plasma Interp Not Detected (Not Detected); CMV Qnt Plasma log IU/mL Not Detected log IU/mL
== END 2025-06-16 10:34 | disposition home or self-care (01) ==
LOC: LAB 10:33
PROVIDERS: PCP Surgery; Visit Provider Internal Medicine
DX: Z48.298 Encounter for aftercare following other organ transplant (principal); D46.9 Myelodysplastic syndrome, unspecified
CPT/HCPCS: 36415; 36592; 80053; 80197; 83735; 85025; 87497; 99211; A4221